=== PATIENT | male | born 1955 | race Caucasian/White ===

== ENCOUNTER 2024-02-12 09:42 | Day surgery (SDC) | payer OTHER ==
[2024-02-05 10:06] VITALS: BMI 25.9
[2024-02-12 11:14] VITALS: RESP 16; TEMP 97.3
[2024-02-12 11:30] VITALS: BP 116/82; PULSE 62
== END 2024-02-12 11:35 | disposition home or self-care (01) ==
LOC: FASU-ENDO 09:42
PROVIDERS: ATTEND Internal Medicine Gastroenterology
PROC: 0DJD8ZZ Inspection of Lower Intestinal Tract, Via Natural or Artificial Opening Endoscopic (ICD-10-PCS; principal; 2024-02-12 10:41)
DX: Z12.11 Encounter for screening for malignant neoplasm of colon (principal); K64.1 Second degree hemorrhoids